=== PATIENT | female | born 1960 ===

== ENCOUNTER 2019-07-20 10:10 | Inpatient (IN) | payer MEDICAID ==
--- NOTE | 2019-07-19 13:15 | Pre-op HX & Phy Repo 2 SIG ---
DATE OF ADMISSION: 07/20/2019 SCHEDULED FOR SURGERY: July 20, 2019. HISTORY OF PRESENT ILLNESS: The patient is a 58-year-old female in overall good health, who presented recently with a mass in the upper portion of the left breast. She underwent mammogram and ultrasound, which revealed two lesions in the left breast at 12 o'clock 4 cm from the nipple was a 2.2 x 1.8 x 1.6 cm palpable mass and core biopsy revealed ductal carcinoma in situ, also seen on ultrasound at 12 o'clock 6 cm from the nipple was an 8 x 6 x 6 mm nodule and core biopsy revealed invasive ductal carcinoma. The patient is estrogen and progesterone receptor positive, HER2 negative. She has been seen by Oncology and will have agreed to proceed with surgery involving the left breast partial mastectomy and left axillary lymph node biopsy and then subsequent therapy will determine based on final pathology. She has no prior history of breast disease. No family history of breast cancer. PAST MEDICAL HISTORY AND MEDICATIONS: None. ALLERGIES: None. OPERATIONS: Repair of umbilical hernia and tubal ligation. REVIEW OF SYSTEMS: 6, para 6. Last menstrual period in 1997. PHYSICAL EXAMINATION: GENERAL: The patient is 5 foot, 205 pounds. VITAL SIGNS: Within normal limits. HEENT: Within normal limits. LUNGS: Clear. HEART: Regular rhythm. BREASTS: The breasts are moderately large and ptotic. The right breast unremarkable. Left breast has a palpable 2 cm mass at 12 o'clock midway between the areola and the periphery. There is no palpable axillary or supraclavicular lymphadenopathy. ABDOMEN: Soft. PELVIC AND RECTAL: Per primary care physician. EXTREMITIES: Without edema. NEUROLOGIC: Physiologic. IMPRESSION: Invasive ductal carcinoma, left breast and ductal carcinoma in situ, left breast. PLAN: Left breast partial mastectomy and left axillary lymph node biopsy. DISCUSSION: I have had a full discussion with the patient regarding the nature of her condition, the nature of the surgery, indications, alternatives, options, and risks including bleeding, infection, scarring, and distortion of the breast and/or nipple, need for additional procedure including surgery, possible chemotherapy, radiation therapy, and other hormonal blockade treatments based on final pathology. All questions have been answered. The patient understands and agrees to proceed. Delon Singh M.D. DR: THOR JOB#: [id number] CC:
--- NOTE | 2019-07-19 15:53 | NUR ---
[employer] translation services used to obtain medical history with resaw tailer : Paris ,ID# [id number].
[2019-07-20] VITALS (16 sets, daily range): BP systolic 105–145; BP diastolic 50–79
[~2019-07-20] VITALS: Ht 157.5 cm; Wt 91.6 kg
[~2019-07-20 10:10] MED LIST: FERROUS SULFAT325 MG ORAL; Vit D PO
--- NOTE | 2019-07-20 10:30 | Pre-Procedure Note/Attestation ---
Pre-Procedure Note/Attestation Complete Prior to Procedure Planned Procedure: left Procedure Narrative: left breast partial mastectomy and left axillary lymph node biopsy Indications for Procedure Pre-Operative Diagnosis: invasive ductal carcinoma and DCIS left breast Attestation I attest that I discussed the nature of the procedure; its benefits; risks and complications; and alternatives (and the risks and benefits of such alternatives ), prior to the procedure, with the patient (or the patient's legal sales representative metals). I attest that, if there was a reasonable possibility of needing a blood transfusion, the patient (or the patient's legal sales representative metals) was given the [facility] standardized written summary, pursuant to the Ender Jennifer Blood Safety Act ([place] Health and Safety Code # 1645, as amended). I attest that I re-evaluated the patient just prior to the surgery and that there has been no change in the patient's H&P, except as documented below: none Delon Singh MD Jul 20, 2019 10:30
[2019-07-20] MEDS ORDERED: Bupivacaine w/Epi 0.5% 30ml Vial INJ ONE (10:42)
[2019-07-20] MEDS ORDERED: NS Irrig 1000ml IRRIG ONE ×2 (10:50→12:00)
--- NOTE | 2019-07-20 10:56 | Anethesia Preoperative Eval ---
Anesthesia Pre-op PMH/ROS General Date of Evaluation: Jul 20, 2019 Anesthesiologist: Clif ASA Score: ASA 3 Mallampati Score Class I : Soft palate, uvula, fauces, pillars visible Class II: Soft palate, uvula, fauces visible Class III: Soft palate, base of uvula visible Class IV: Only hard plate visible Mallampati Classification: Class III Surgeon: Samantha Diagnosis: Left breast cancer Surgical Procedure: left breast partial mastectomy with axillary lymph node biopsy Anesthesia History: none Family History: no anesthesia problems Allergies: Coded Allergies: No Known Allergies (Unverified , 07/19/19) Medications: see eMAR Patient NPO?: Yes NPO Date: Jul 19, 2019 NPO Time: 22:00 Past Medical History Cardiovascular: Denies: HTN, CAD, GA, valve dz, arrhythmia, other Pulmonary: Denies: asthma, COPD, TIARRA, other Gastrointestinal/Genitourinary: Reports: GERD; Denies: CRI, ESRD, other Neurologic/Psychiatric: Denies: dementia, CVA, depression/anxiety, TIA, other Endocrine: Denies: DM, hypothyroidism, steroids, other HEENT: Denies: cataract (L), cataract (R), glaucoma, LAC COURTE OREILLES (L), LAC COURTE OREILLES (R), other Hematology/Immune: Reports: anemia, other - left breast cancer; Denies: DVT, bleeding disorder Musculoskeletal/Integumentary: Reports: other - LBP; Denies: OA, RA, DJD, DDD, edema Other: obesity PSxH Narrative: BTL, UHR Anesthesia Pre-op Phys. Exam Physician Exam see chart Constitutional: NAD Cardiovascular: RRR Respiratory: CTA Airway Exam Mallampati Score: Class III MO: limited Neck: short, obese TMD: <2FB ROM: limited Teeth: intact, other - permanent dentures Dentures: lower - partial , removable Anesthesia Pre-op A/P Labs Hematology Test 07/20/19 10:52 White Blood Count Pending Red Blood Count Pending Hemoglobin Pending Hematocrit Pending Mean Corpuscular Volume Pending Mean Corpuscular Hemoglobin Pending Mean Corpuscular Hemoglobin Concent Pending Red Cell Distribution Width Pending Platelet Count Pending Mean Platelet Volume Pending Neutrophils (%) (Auto) Pending Lymphocytes (%) (Auto) Pending Monocytes (%) (Auto) Pending Eosinophils (%) (Auto) Pending Basophils (%) (Auto) Pending Coagulation Test 07/20/19 10:52 Prothrombin Time Pending Prothromb Time International Ratio Pending Activated Partial Thromboplast Time Pending Chemistry Test 07/20/19 10:52 Sodium Level Pending Potassium Level Pending Chloride Level Pending Carbon Dioxide Level Pending Blood Urea Nitrogen Pending Creatinine Pending Estimat Glomerular Filtration Rate Pending Glucose Level Pending Calcium Level Pending Studies Pre-op Studies: EKG - sr Risk Assessment & Plan Assessment: ASA III Plan: GA Status Change Before Surgery: No Pre-Antibiotics Drug: Ancef 2g Given Within 1 Hr of Incision: Yes Cathi Fontana MD Jul 20, 2019 10:56
[2019-07-20 10:58] LABS: BASOPHILS % (AUTO) 1.2 % (0.0-2.0); EOSINOPHILS % (AUTO) 5.2 % (0.0-3.0); HEMATOCRIT 39.8 % (37.0-47.0); HEMOGLOBIN 12.8 G/DL (12.0-16.0); LYMPHOCYTES % (AUTO) 24.8 % (20.0-45.0); MEAN CORPUSCULAR VOLUME 91 FL (80-99); MONOCYTES % (AUTO) 6.4 % (1.0-10.0); NEUTROPHILS % (AUTO) 62.4 % (45.0-75.0); PLATELET COUNT 329 K/UL (150-450); RED BLOOD COUNT 4.39 M/UL (4.20-5.40); WHITE BLOOD COUNT 11.5 K/UL (4.8-10.8)
[2019-07-20 11:03] LABS: ANION GAP 7 mmol/L (5-15); BLOOD UREA NITROGEN 9 mg/dL (7-18); CALCIUM 9.4 MG/DL (8.5-10.1); CARBON DIOXIDE 27 MMOL/L (21-32); CHLORIDE 105 MMOL/L (98-107); CREATININE 0.7 MG/DL (0.55-1.30); POTASSIUM 4.2 MMOL/L (3.5-5.1); SODIUM 139 MMOL/L (136-145)
[2019-07-20] MEDS ORDERED: Lidocaine 1% MPF 10mg/ml 5ml ONE (11:45)
[2019-07-20] MEDS ORDERED: Propofol 200mg/20ml IV ONE (11:45)
[2019-07-20] MEDS ORDERED: Midazolam 2mg/2ml Inj ONE (11:45)
[2019-07-20] MEDS ORDERED: fentaNYL 100 mcg/2 mL IV ONE (11:45)
[2019-07-20 11:50] LABS: APPEARANCE,URINE CLEAR; BILIRUBIN, URINE NEGATIVE (NEGATIVE); COLOR,URINE PALE YELLOW; GLUCOSE, URINE (UA) NEGATIVE (NEGATIVE); KETONES,URINE NEGATIVE (NEGATIVE); LEUKOCYTE ESTERASE ,URINE NEGATIVE (NEGATIVE); NITRITE,URINE NEGATIVE (NEGATIVE); PH,URINE 7 (4.5-8.0); PROTEIN,URINE NEGATIVE (NEGATIVE); UROBILINOGEN,URINE NORMAL MG/DL (0.0-1.0)
[2019-07-20] MEDS ORDERED: LR 1000ml ONE (12:00)
[2019-07-20] MEDS ORDERED: Sterile Water Irrig 1000ml IRRIG ONE (12:00)
[2019-07-20] MEDS ORDERED: Dexamethasone 4mg/ml vial ONE (12:03)
[2019-07-20] MEDS ORDERED: Metoclopramide 10mg/2ml Inj ONE (12:03)
[2019-07-20] MEDS ORDERED: LR 1000ml 1,000 ML IVLG SCH (12:23)
[2019-07-20] MEDS ORDERED: Metoclopramide 10mg/2ml Inj IVP PRN ×2 (12:30)
[2019-07-20] MEDS ORDERED: Midazolam 2mg/2ml Inj IVP PRN (12:30)
[2019-07-20] MEDS ORDERED: DiphenhydrAMINE 50mg/ml Inj IVP PRN (12:30)
[2019-07-20] MEDS ORDERED: Hydromorphone 0.5mg/0.5ml inj IVP PRN (12:30)
[2019-07-20] MEDS ORDERED: fentaNYL 100 mcg/2 mL IV PRN (12:30)
[2019-07-20] MEDS ORDERED: Ketorolac 30mg Inj IV PRN (12:30)
[2019-07-20] MEDS ORDERED: LORazepam Inj 2mg/ml 1ml IV PRN (12:30)
--- NOTE | 2019-07-20 13:36 | Immediate Post-Op Evaluation ---
Immediate Post-Op Evalulation Immediate Post-Op Evalulation Procedure: Left breast partial mastectomy with axillary lymph node biopsy Date of Evaluation: Jul 20, 2019 Time of Evaluation: 13:38 IV Fluids: 800 Blood Products: 0 Estimated Blood Loss: min Urinary Output: 0 Blood Pressure Systolic: 105 Blood Pressure Diastolic: 50 Pulse Rate: 73 Respiratory Rate: 16 O2 Sat by Pulse Oximetry: 98 Temperature (Fahrenheit): 98.3 Pain Score (1-10): 0 Nausea: No Vomiting: No Complications 0 Patient Status: awake, reacts, patent, none Hydration Status: adequate Drug: Ancef 2g Given Within 1 Hr of Incision: Yes Cathi Fontana MD Jul 20, 2019 13:36
--- NOTE | 2019-07-20 13:37 | Brief Operative Note ---
Immediate Post Operative Note Operative Note Pre-op Diagnosis: invasive ductal carcinoma and DCIS left breast Procedure: left breast partial mastectomy and left axillary lymph node biopsy Post-op Diagnosis: same Post-op Diagnosis: same as pre-op Findings: consistent w/pre-op dx studies Surgeon: ritesh Anesthesiologist: tran Anesthesia: general Specimen: yes - left breast tissue, left axillary lymph nodes Complications: none Condition: stable Fluids: see anesthesia record Estimated Blood Loss: minimal Drains: JOURDAN Implant(s) used?: No Delon Singh MD Jul 20, 2019 13:37
[2019-07-20] MEDS ORDERED: HYDROmorphone 1mg/ml Carpuject SUBQ PRN (13:45)
[2019-07-20] MEDS ORDERED: HYDROcodone/Acetamin 5/325 tab ORAL PRN (13:45)
--- NOTE | 2019-07-20 15:00 | NUR ---
NURSE NOTES: Received report from Di CHAWLA. Patient arrived to unit via bed at 1445. Patient is drowsy, but arousable to voice, on 2L NC. Reporting no pain at this time. Surgical site dressing clean and dry, JOURDAN drain compressed. SCD's in place. Right FA IV intact, patent. Needs met at this time. Patient's and daughter at bedside, updated on plan of care. Side rais upx3, bed low and locked, call light in reach. Will continue to monitor.
[2019-07-20] MEDS ORDERED: VITAMIN D1000 UNI1 ORAL (15:24)
--- NOTE | 2019-07-20 16:30 | Operative Note - Dictated ---
DATE OF OPERATION: 07/20/2019 SURGEON: Delon Singh M.D. VALUE ENGINEER: None. ANESTHESIOLOGIST: Dr. Menezes. TYPE OF ANESTHESIA: General endotracheal. PREOPERATIVE DIAGNOSIS: Invasive ductal carcinoma and ductal carcinoma in situ, left breast. POSTOPERATIVE DIAGNOSIS: Invasive ductal carcinoma and ductal carcinoma in situ, left breast. OPERATION PERFORMED: Left breast partial mastectomy and left axillary lymph node biopsy. INDICATIONS: The patient presented with a left breast mass 2 x 2 cm at 12 o'clock located 4 cm from the nipple with core biopsy revealing ductal carcinoma in situ. In addition, there was an 8 mm nodule in the left breast 12 o'clock 6 cm from the nipple and core biopsy revealed invasive ductal carcinoma. The palpable mass and the smaller nonpalpable lesion were all resected. DESCRIPTION OF PROCEDURE: The patient was taken to the operating room and under general anesthesia was prepped and draped in the usual fashion with sequential compression device stockings in place. Curvilinear upper left breast incision was made achieving hemostasis with cautery and dissecting flaps circumferentially. The palpable mass and the superior tissue was resected with a wide excision down to pectoralis fascia achieving hemostasis with cautery. The specimen was oriented with sutures placed anterior, superior, and medial. Inspection by pathology revealed a margin close superomedial and inferior and additional tissue was taken in those sectors. The field was irrigated and hemostasis carefully achieved with cautery. The incision was closed with interrupted 3-0 Vicryl deep dermal subcutaneous sutures and marbin in the skin. The left axillary incision was made achieving hemostasis with cautery and incising the clavipectoral fascia. A cluster of obviously slightly enlarged lymph nodes was identified and resected using the Thunderbeat electrosurgical device and lymph nodes given to pathology. The field was irrigated and hemostasis was secured. Through a separate stab incision inferiorly, a large flat Eze-Isabel drain was placed into the axilla and sutured to the skin with 2-0 nylon skin suture. The axillary incision was irrigated and hemostasis secured. The clavipectoral fascia was closed with interrupted 3-0 Vicryl. Subcutaneous tissues closed with interrupted 3-0 Vicryl and skin closed with continuous 4-0 Monocryl subcuticular suture. Mastisol and half-inch Steri-Strips were applied to both incisions followed by dry sterile dressing. Final sponge and needle counts were correct. The patient tolerated the procedure well and left the operating room in good condition. Delon Singh M.D. DR: Teresa JOB#: [id number] CC: ANIYAH
[2019-07-20] MEDS: D5 1/2NS w/KCl 20mEq 1,000 ML IV SCH (16:51)
--- NOTE | 2019-07-20 19:20 | NUR ---
NURSE NOTES: Report taken from DENTON Cash. Patient awake and in bed, A&Ox4. Luxembourgish speaking only, daughter at bedside. No signs of distress on room air. No complaint of pain. IV site infiltrated, will place new IV. Skin is intact. Surgical site c/d/i, continue to access. JOURDAN drain to bulb suction, draining serosanguineous fluid. Bilateral UE are swollen, +1 pitting, continue to monitor. Bed in lowest position, call light within reach.
--- NOTE | 2019-07-20 19:37 | NUR ---
HAND-OFF: Report given to Roderick CHAWLA.
[2019-07-20] MEDS: ceFAZolin sod 1 GM in D5W 55 ML IV SCH (20:18)
--- NOTE | 2019-07-20 20:30 | NUR ---
NURSE NOTES: New IV site Rt. AC 22g.
[2019-07-21] VITALS: BP 118/69
[2019-07-21] MEDS: D5 1/2NS w/KCl 20mEq 1,000 ML IV SCH (02:17)
[2019-07-21 04:00] VITALS: BP 117/63
[2019-07-21] MEDS: ceFAZolin sod 1 GM in D5W 55 ML IV SCH (04:28)
--- NOTE | 2019-07-21 07:37 | NUR ---
HAND-OFF: Report given to KAREN Henson. Patient is awake and in bed, VS stable.
--- NOTE | 2019-07-21 07:45 | NUR ---
NURSE NOTES: Report taken from DENTON Vaughn. Patient is A/A/Ox4. Bengali speaking only, daughter at bedside. No signs of distress on room air. No complaint of pain. right arm elevated secondary to IV infiltration that happened prior my shift. New IV heplock patent and intact. Skin is intact. Surgical site c/d/i, continue to access. JOURDAN drain to bulb suction, draining serosanguineous fluid. Instructed to use IS w/a. will continue to monitor. Bed in lowest position, call light within reach.
[2019-07-21 08:00] VITALS: BP 116/65
[2019-07-21 09:22] VITALS: BP 116/78
--- NOTE | 2019-07-21 09:22 | 48 Hour Post Anesthesia Eval ---
Post Anesthesia Evaluation Procedure: Left breast partial mastectomy with axillary lymph node biopsy Date of Evaluation: Jul 21, 2019 Time of Evaluation: 09:21 Blood Pressure Systolic: 116 0: 78 Pulse Rate: 64 Respiratory Rate: 20 Temperature (Fahrenheit): 97.5 O2 Sat by Pulse Oximetry: 98 Airway: patent Nausea: No Vomiting: No Pain Intensity: 2 Hydration Status: adequate Cardiopulmonary Status: stable Mental Status/LOC: patient returned to baseline Follow-up Care/Observations: n/a Post-Anesthesia Complications: none Follow-up care needed: ready to discharge Drake Andrea MD Jul 21, 2019 09:22
--- NOTE | 2019-07-21 10:22 | General Progress Note ---
Progress Note Progress Note Doing well - needed no analgesics. Left breast and axilla incisions are clean with intact steristrips JOURDAN 25cc serosang Imp. doing well Plan: discharge Rx - none - will take tylenol + ibupropfen prn instructions/supplies/limitations discussed/provided f/u 07/25 in office Delon Singh MD Jul 21, 2019 10:22
--- NOTE | 2019-07-21 11:16 | NUR ---
NURSE NOTES: DISCHARGE HOME WITH INSTRUCTIONS. REMOVED IV HEPLOCK. NO ACUTE DISTRESS NOTED. IN STABLE CONDITION. DENIES OF PAIN/DISCOMFORT NOTED. DRSG CHANGED ON LEFT BREAST BY DR BLACK. JOURDAN IS INTACT AND PLACED WITH AN OUTPUT OF 5CC. PERSONAL BELONGINGS NOTED. NO N/V NOTED. WHEELED DOWN BY CN, ELFIE TO THE LOBBY. SPOUSE AND DAUGHTER, DWAIN WITH PATIENT.
--- NOTE | 2019-07-23 09:35 | Discharge Summary ---
Discharge Summary Hospital Course Date of Admission Jul 20, 2019 at 14:33 Date of Discharge Jul 21, 2019 at 11:18 Admitting Diagnosis Invasive ductal carcinoma and ductal carcinoma in situ, left breast Reason for Hospitalization: elective surgery HPI Paris Leonard is a 58 year old female who was admitted on Jul 20, 2019 at 14:33 for invasive ductal carcinoma and ductal carcinoma in situ, left breast . 58-year-old female in overall good health, presented recently with a mass in the upper portion of the left breast. She underwent mammogram and ultrasound, which revealed two lesions in the left breast : 1/ at 12 o'clock 4 cm from the nipple was a 2.2 x 1.8 x 1.6 cm palpable mass and core biopsy revealed ductal carcinoma in situ, 2/ also seen on ultrasound at 12 o'clock 6 cm from the nipple was an 8 x 6 x 6 mm nodule and core biopsy revealed invasive ductal carcinoma. The patient was found to be estrogen and progesterone receptor positive, HER2 negative. She had been seen by Oncology and agreed to proceed with surgery, involving the left breast partial mastectomy and left axillary lymph node biopsy after full discussion with surgeon regarding options, risks and additional treatment that may be required. Patient was admitted for elective surgery. Procedures s/p 07/20/[address] Singh Left breast partial mastectomy and left axillary lymph node biopsy. Hospital Course status post surgery course of recovery uneventful initially IV fluids s/p perioperative antibiotics remains hemodynamically stable Left breast and axilla incisions were clean with intact steri-strips JOURDAN drain with 25cc serosanguineous drainage patient was taught how to manage JOURDAN drain patient did not requested any analgesics while in the hospital, remained pain free DVT prophylaxis provided use of incentive spirometry was encouraged while in the bed tolerated diet , IV fluids discontinued GI prophylaxis provided antiemetics were on board as needed ambulated voided freely bowel regimen instituted patient was stable for discharge home pain management at home with Tylenol and Ibuprofen as needed instructions/supplies/limitations discussed/provided patient to f/u 07/25 with surgeon in office FINAL DIAGNOSES 1. Invasive ductal carcinoma and ductal carcinoma in situ, left breast 2. S/P Left breast partial mastectomy and left axillary lymph node biopsy. Discharge Medications Discontinued Medications: Cholecalciferol (Vitamin D3)* (Vitamin D*) 1,000 Unit Tablet 1000 UNIT ORAL DAILY, #30 TAB Ferrous Sulfate* (Ferrous Sulfate*) 325 Mg Tablet 325 MG ORAL DAILY, #30 TAB 0 Refills Discharge Condition Upon Discharge: stable Discharge Disposition Patient was discharged home Discharge Instructions Discharge Instructions Special Instructions I have been assigned to complete a D/C Summary on this account. I was not involved in the patient management Nhung Arguelles NP Jul 23, 2019 09:35
== END 2019-07-21 11:18 | disposition home or self-care (01) | DRG 363 ==
LOC: SUR 10:10 → 3E 14:33
PROC: 07B60ZX Excision of Left Axillary Lymphatic, Open Approach, Diagnostic (ICD-10-PCS; 2019-07-20)
PROC: 0HBU0ZZ Excision of Left Breast, Open Approach (ICD-10-PCS; principal; 2019-07-20 12:00)
DX: C50.812 Malignant neoplasm of overlapping sites of left female breast (principal); Z17.0 Estrogen receptor positive status [ER+]
CPT/HCPCS: 36415; 71046; 80048; 81001; 81003; 85025; 85610; 85730; 93005; 94003; 94150; J2250; J2405; J2765